=== PATIENT | female | born 1985 | race Caucasian/White ===

== ENCOUNTER 2017-03-07 10:56 | Emergency (ER) | payer BC, OTHER ==
[2017-03-07] MEDS ORDERED: NS 0.9% 1000 ML* 1,000 ML IV ONE (14:53)
[2017-03-07] MEDS ORDERED: Lidocaine 2% VISCOUS* 15 ML UDC PO ONE (14:54)
[2017-03-07] MEDS ORDERED: Al Hydrox/Mg Hydrox/Simet LIQ* 30 ML UDC PO ONE (14:54)
[2017-03-07 15:17] LABS: Hematocrit 40 % (35-47); Hemoglobin 13.5 g/dl (12.0-16.0); Mean Corpuscular HGB Conc 34 g/dl (31-36); Mean Corpuscular Hemoglobin 29 pg (27-31); Mean Corpuscular Volume 87 fL (80-97); Mean Platelet Volume 9 um3 (7.4-10.4); Red Cell Distribution Width 13 % (10.5-15); White Blood Count 8.2 10^3/ul (3.5-10.8)
[2017-03-07 15:29] LABS: ALT 17 U/L (7-52); AST 19 U/L (13-39); Alkaline Phosphatase 55 U/L (34-104); Anion Gap 6 mmol/L (2-11); BUN/Creatinine Ratio 9.9 (8-20); Blood Urea Nitrogen 8 mg/dL (6-24); C Reactive Protein 8.33 mg/L (< 5.00); CO2 Carbon Dioxide 24 mmol/L (22-32); Calcium 8.9 mg/dL (8.6-10.3); Chloride 106 mmol/L (101-111); Creatine Kinase 56 U/L (10-223); EGFR African American 106.8 (>60); Globulin 3.3 g/dL (2-4); Glucose 104 mg/dL (70-100); Lipase 28 U/L (11.0-82.0); Magnesium 2.3 mg/dL (1.9-2.7); Potassium 3.7 mmol/L (3.5-5.0); Sodium 136 mmol/L (133-145); Total Protein 7.3 g/dL (6.4-8.9)
--- NOTE | 2017-03-07 15:43 | RAD ---
Indication: Chest pain. 2 views of the chest including dual energy PA views demonstrate no mediastinal shift. Heart is of normal size and configuration. Lung simmons demonstrate no pleural fluid, pneumonia or pneumothorax. When compared to previous exam of June 18, 2010 no significant change is noted. IMPRESSION: No active cardiopulmonary disease is noted.
[2017-03-07 16:06] LABS: TSH (Thyroid Stimulating Horm) 0.79 mcIU/mL (0.34-5.60)
[2017-03-07 16:37] LABS: Urine Bilirubin Negative (Negative); Urine Glucose Negative (Negative); Urine Nitrite Negative (Negative)
--- NOTE | 2017-03-07 17:00 | ED ---
Tsering Snell Edward, scribed for Zen Cortez MD on 03/07/17 at 1434 . HPI Chest Pain - HPI Summary HPI Summary: 32 y/o jack presents to the ED c/o mild CP intermittently for a couple of months. Last week the CP got worse and became more persistent. The pain starts at the bottom of the sternum/epigastric region and radiates up to her R shoulder , R side neck and back starting 2 days ago. The pain is described as a dull ache that was occasionally tingly initially, but is different now. Now it is described as a pressure with occasional sharp twinges. The pain is at a 3/10 right now and is at a 6-7 at its worst. Last night the pain woke her up throughout the night and was steady in the morning. Pt was seen at her PCP in September 2016 for these symptoms. Associated sx: bloating starting 2 days ago, pain at inside of R leg a couple of nights ago that resolved spontaneously. Denies vomiting. No PMHx GERD. Pt took antacid last night that did not alleviate symptoms. The pain is not aggravated with food. - History of Current Complaint Chief Complaint: EDChestPainROMI Time Seen by Provider: 03/07/17 14:27 Hx Obtained From: Patient Hx Last Menstrual Period: 2 months ago Onset/Duration: Started Weeks Ago, Still Present Timing: Intermittent Initial Severity: Mild Current Severity: Moderate Pain Intensity: 5 Pain Scale Used: 0-10 Numeric Chest Pain Location: Lower Sternal Chest Pain Radiates: Yes Chest Pain Radiates To:: Shoulder, Neck, Other - back Character: Pressure/Squeezing, Sharp/Stabbing Aggravating Factor(s): Nothing Alleviating Factor(s): Nothing Associated Signs and Symptoms: Positive: Other: - bloating. Negative: Vomiting - Allergy/Home Medications Allergies/Adverse Reactions: Allergies Allergy/AdvReac Type Severity Reaction Status Date / Time Amoxicillin Allergy Intermediate Rash Verified 12/18/12 20:11 Butabarbital Allergy See Comment Verified 03/07/17 11:01 PMH/Surg Hx/FS Hx/Imm Hx Previously Healthy: No Endocrine/Hematology History: Denies: Hx Diabetes, Hx Thyroid Disease Cardiovascular History: Denies: Hx Hypertension Respiratory History: Denies: Hx Asthma, Hx Chronic Obstructive Pulmonary Disease (COPD) GI History: Denies: Hx Gastroesophageal Reflux Disease, Hx Ulcer - Surgical History Surgery Procedure, Year, and Place: Bladder Surgery, growth removal, benign Infectious Disease History: No Infectious Disease History: Denies: Hx Hepatitis, Hx Human Immunodeficiency Virus (HIV), Traveled Outside the [place] in Last 30 Days - Family History Known Family History: Positive: Unknown - Social History Alcohol Use: Occasionally Hx Substance Use: No Substance Use Type: Reports: None Hx Tobacco Use: No Smoking Status (MU): Never Smoked Tobacco Review of Systems Constitutional: Negative Eyes: Negative ENT: Negative Positive: Chest Pain Respiratory: Negative Positive: Other - bloating. Negative: Vomiting, Nausea Genitourinary: Negative Musculoskeletal: Negative Skin: Negative Neurological: Negative Psychological: Normal All Other Systems Reviewed And Are Negative: Yes Physical Exam Triage Information Reviewed: Yes Vital Signs On Initial Exam: Initial Vitals Temp Pulse Resp BP Pulse Ox 98.6 F 91 16 138/90 99 03/07/17 11:01 03/07/17 11:01 03/07/17 11:01 03/07/17 11:01 03/07/17 11:01 Vital Signs Reviewed: Yes Appearance: Positive: Well-Appearing, No Pain Distress Skin: Positive: Warm, Skin Color Reflects Adequate Perfusion, Dry Head/Face: Positive: Normal Head/Face Inspection Eyes: Positive: EOMI, SOFIA ENT: Positive: Normal ENT inspection Neck: Positive: Supple, Nontender Respiratory/Lung Sounds: Positive: Clear to Auscultation, Breath Sounds Present Cardiovascular: Positive: RRR Abdomen Description: Positive: Nontender, Soft Bowel Sounds: Positive: Present Musculoskeletal: Positive: Strength/ROM Intact, Pain @ - Mildly tender @ L sternal border Neurological: Positive: Normal, Sensory/Motor Intact, Alert, Oriented to Person Place, Time Psychiatric: Positive: Affect/Mood Appropriate Diagnostics - Vital Signs Vital Signs Temp Pulse Resp BP Pulse Ox 03/07/17 11:01 98.6 F 91 16 138/90 99 - Laboratory Lab Results: Lab Results 03/07/17 03/07/17 03/07/17 Range/Units 15:04 15:04 15:04 WBC 8.2 (3.5-10.8) 10^3/ul RBC 4.60 (4.0-5.4) 10^6/ul Hgb 13.5 (12.0-16.0) g/dl Hct 40 (35-47) % MCV 87 (80-97) fL MCH 29 (27-31) pg MCHC 34 (31-36) g/dl RDW 13 (10.5-15) % Plt Count 291 (150-450) 10^3/ul MPV 9 (7.4-10.4) um3 Neut % (Auto) 54.6 (38-83) % Lymph % (Auto) 36.9 (25-47) % Jackson % (Auto) 5.3 (1-9) % Eos % (Auto) 2.1 (0-6) % Baso % (Auto) 1.1 (0-2) % Absolute Neuts (auto) 4.5 (1.5-7.7) 10^3/ul Absolute Lymphs (auto) 3.0 (1.0-4.8) 10^3/ul Absolute Monos (auto) 0.4 (0-0.8) 10^3/ul Absolute Eos (auto) 0.2 (0-0.6) 10^3/ul Absolute Basos (auto) 0.1 (0-0.2) 10^3/ul Absolute Nucleated RBC 0 10^3/ul Nucleated RBC % 0 INR (Anticoag Therapy) 0.81 (0.77-1.02) APTT 28.6 (26.0-36.3) seconds D-Dimer, Quantitative < 200 (Less Than 230) ng/mL Sodium 136 (133-145) mmol/L Potassium 3.7 (3.5-5.0) mmol/L Chloride 106 (101-111) mmol/L Carbon Dioxide 24 (22-32) mmol/L Anion Gap 6 (2-11) mmol/L BUN 8 (6-24) mg/dL Creatinine 0.81 (0.51-0.95) mg/dL Est GFR ( Amer) 106.8 (>60) Est GFR (Non-Af Amer) 83.0 (>60) BUN/Creatinine Ratio 9.9 (8-20) Glucose 104 H (70-100) mg/dL Lactic Acid (0.5-2.0) mmol/L Calcium 8.9 (8.6-10.3) mg/dL Magnesium 2.3 (1.9-2.7) mg/dL Total Bilirubin 0.70 (0.2-1.0) mg/dL AST 19 (13-39) U/L ALT 17 (7-52) U/L Alkaline Phosphatase 55 (34-104) U/L Total Creatine Kinase 56 (10-223) U/L CK-MB (CK-2) 0.6 (0.6-6.3) ng/mL Troponin I 0.00 (<0.04) ng/mL C-Reactive Protein 8.33 H (< 5.00) mg/L Total Protein 7.3 (6.4-8.9) g/dL Albumin 4.0 (3.2-5.2) g/dL Globulin 3.3 (2-4) g/dL Albumin/Globulin Ratio 1.2 (1-3) Lipase 28 (11.0-82.0) U/L TSH 0.79 (0.34-5.60) mcIU/mL Beta HCG, Quant < 0.60 mIU/mL Urine Color Urine Appearance Urine pH (5-9) Ur Specific [place] (1.010-1.030) Urine Protein (Negative) Urine Ketones (Negative) Urine Blood (Negative) Urine Nitrate (Negative) Urine Bilirubin (Negative) Urine Urobilinogen (Negative) Ur Leukocyte Esterase (Negative) Urine Glucose (Negative) Urine Ascorbic Acid (Negative) 03/07/17 03/07/17 Range/Units 15:04 16:18 WBC (3.5-10.8) 10^3/ul RBC (4.0-5.4) 10^6/ul Hgb (12.0-16.0) g/dl Hct (35-47) % MCV (80-97) fL MCH (27-31) pg MCHC (31-36) g/dl RDW (10.5-15) % Plt Count (150-450) 10^3/ul MPV (7.4-10.4) um3 Neut % (Auto) (38-83) % Lymph % (Auto) (25-47) % Jackson % (Auto) (1-9) % Eos % (Auto) (0-6) % Baso % (Auto) (0-2) % Absolute Neuts (auto) (1.5-7.7) 10^3/ul Absolute Lymphs (auto) (1.0-4.8) 10^3/ul Absolute Monos (auto) (0-0.8) 10^3/ul Absolute Eos (auto) (0-0.6) 10^3/ul Absolute Basos (auto) (0-0.2) 10^3/ul Absolute Nucleated RBC 10^3/ul Nucleated RBC % INR (Anticoag Therapy) (0.77-1.02) APTT (26.0-36.3) seconds D-Dimer, Quantitative (Less Than 230) ng/mL Sodium (133-145) mmol/L Potassium (3.5-5.0) mmol/L Chloride (101-111) mmol/L Carbon Dioxide (22-32) mmol/L Anion Gap (2-11) mmol/L BUN (6-24) mg/dL Creatinine (0.51-0.95) mg/dL Est GFR ( Amer) (>60) Est GFR (Non-Af Amer) (>60) BUN/Creatinine Ratio (8-20) Glucose (70-100) mg/dL Lactic Acid 0.9 (0.5-2.0) mmol/L Calcium (8.6-10.3) mg/dL Magnesium (1.9-2.7) mg/dL Total Bilirubin (0.2-1.0) mg/dL AST (13-39) U/L ALT (7-52) U/L Alkaline Phosphatase (34-104) U/L Total Creatine Kinase (10-223) U/L CK-MB (CK-2) (0.6-6.3) ng/mL Troponin I (<0.04) ng/mL C-Reactive Protein (< 5.00) mg/L Total Protein (6.4-8.9) g/dL Albumin (3.2-5.2) g/dL Globulin (2-4) g/dL Albumin/Globulin Ratio (1-3) Lipase (11.0-82.0) U/L TSH (0.34-5.60) mcIU/mL Beta HCG, Quant mIU/mL Urine Color Yellow Urine Appearance Clear Urine pH 7.0 (5-9) Ur Specific [place] 1.013 (1.010-1.030) Urine Protein Negative (Negative) Urine Ketones Negative (Negative) Urine Blood Negative (Negative) Urine Nitrate Negative (Negative) Urine Bilirubin Negative (Negative) Urine Urobilinogen Negative (Negative) Ur Leukocyte Esterase Negative (Negative) Urine Glucose Negative (Negative) Urine Ascorbic Acid * H (Negative) Result Diagrams: 03/07/17 15:04 03/07/17 15:04 Lab Statement: Any lab studies that have been ordered have been reviewed, and results considered in the medical decision making process. - Radiology CXR Xray Interpretation: No Acute Changes - No active cardiopulmonary disease noted Radiology Interpretation Completed By: Radiologist - ED PHYSICIAN REVIEWS AND AGREES - Additional Comments Diagnostic Additional Comments: EKG - 15:31 - NSR @ [address], No ectopy. Chest Pain Course/Dx - Course Course Of Treatment: DISCUSSED RESULTS WITH PATIENT/. NO APPARENT IMPROVEMENT WITH GI COCKTAIL. NL EKG. NEG TROP AND DDIMER. WILL PLAN ON IBUPROFEN AND F/U PMD; RETURN IF WORSE. - Diagnoses Provider Diagnoses: Chest pain Discharge - Discharge Plan Condition: Stable Disposition: HOME Patient Education Materials: Chest Pain (ED) Referrals: Loretta Hutchinson MD [Primary Care Provider] - Additional Instructions: FOLLOW UP WITH YOUR DOCTOR. TAKE IBUPROFEN 600MG EVERY 6 HOURS NEEDED IF HELPFUL. RETURN TO THE EMERGENCY DEPARTMENT FOR ANY WORSENING OF YOUR CONDITION; PAIN, SHORTNESS OF BREATH, YOU FEEL ILL, FEVER OR QUESTIONS OR CONCERNS. The documentation as recorded by the Tsering diez Edward accurately reflects the service I personally performed and the decisions made by me, Zen Cortez MD.
[2017-03-07 17:32] VITALS: BP 116/82
== END 2017-03-07 17:32 | disposition home or self-care (01) ==
LOC: ED 10:56
DX: R07.89 Other chest pain (principal); R14.0 Abdominal distension (gaseous); Z32.02 Encounter for pregnancy test, result negative; Z88.1 Allergy status to other antibiotic agents
CPT/HCPCS: 36415; 71020; 80053; 81003; 82550; 82553; 83605; 83690; 83735; 84443; 84484; 84702; 85025; 85379; 85610; 85730; 86140; 93005; 99282; A9270-GY

== ENCOUNTER 2017-05-22 18:33 | Emergency (ER) | payer BC ==
[2017-05-22] MEDS ORDERED: Albuterol HFA INHALER* 8 gm MDI INH ONE (22:56)
[2017-05-22] MEDS ORDERED: GuaiFENesin DM* 5 ML UDC PO ONE (22:56)
[2017-05-22] MEDS ORDERED: Benzonatate CAP* 100 MG PO ONE (22:56)
[2017-05-22] MEDS ORDERED: Ibuprofen TAB* 600 MG PO ONE (23:18)
[2017-05-22 23:57] VITALS: BP 113/82
--- NOTE | 2017-05-23 01:18 | ED ---
Respiratory - HPI Summary HPI Summary: Patient is an otherwise healthy 32-year-old female who presents to the ED with chief complaint of cough and chest discomfort with cough. She states a company had came to bleach out their well, and immediately following her and her began to develop inhalation symptoms. She states the odor of bleach was extremely strong and upon inhalation she felt a burning in her lungs. This occurred on Monday (4 days ago) and felt improved over the weekend. She now states she feels feverish, with cough but denies any shortness of breath. Her was recently diagnosed with bronchitis. She denies any flu contacts. She denies any rhinorrhea. She has been taking ibuprofen and Tylenol at home with slight improvement. She denies any throat or nasal pain. - History of Current Complaint Chief Complaint: EDThroatPain Stated Complaint: DIFF BREATHING Time Seen by Provider: 05/22/17 21:18 Hx Obtained From: Patient Onset/Duration: Sudden Onset Timing: Constant Initial Severity: Mild Current Severity: Mild Pain Intensity: 5 Character: Cough (Nonproductive) Sputum Amount: None Sputum Color: Clear Aggravating Factor(s): URI Alleviating Factor(s): Nothing Associated Signs and Symptoms: Negative - Risk Factors Status Asthmaticus Risk Factors: Negative Pulmonary Embolism Risk Factors: Negative Cardiac Risk Factors: Negative Pseudomonas Risk Factors: Negative Tuberculosis Risk Factors: Negative - Allergy/Home Medications Allergies/Adverse Reactions: Allergies Allergy/AdvReac Type Severity Reaction Status Date / Time amoxicillin Allergy Rash Verified 05/22/17 18:44 butabarbital Allergy See Comment Verified 05/22/17 18:44 PMH/Surg Hx/FS Hx/Imm Hx Previously Healthy: Yes Endocrine/Hematology History: Denies: Hx Diabetes, Hx Thyroid Disease Cardiovascular History: Denies: Hx Hypertension Respiratory History: Denies: Hx Asthma, Hx Chronic Obstructive Pulmonary Disease (COPD) GI History: Denies: Hx Gastroesophageal Reflux Disease, Hx Ulcer - Surgical History Surgery Procedure, Year, and Place: Bladder Surgery, growth removal, benign - Immunization History Hx Pertussis Vaccination: No Immunizations Up to Date: Unable to Obtain/Confirm Infectious Disease History: No Infectious Disease History: Denies: Hx Hepatitis, Hx Human Immunodeficiency Virus (HIV), Traveled Outside the [place] in Last 30 Days - Family History Known Family History: Positive: Unknown - Social History Occupation: Employed Full-time Lives: With Family Alcohol Use: Rare Hx Substance Use: No Substance Use Type: Reports: None Hx Tobacco Use: No Smoking Status (MU): Never Smoked Tobacco Review of Systems Constitutional: Negative Negative: Fever, Chills, Fatigue, Skin Diaphoresis Eyes: Negative Positive: Chest Pain - with cough Positive: Shortness Of Breath - with cough, Cough Gastrointestinal: Negative Negative: Abdominal Pain, Vomiting, Diarrhea, Nausea Positive: no symptoms reported, see HPI Musculoskeletal: Negative Skin: Negative Psychological: Normal All Other Systems Reviewed And Are Negative: Yes Physical Exam Triage Information Reviewed: Yes Vital Signs On Initial Exam: Initial Vitals Temp Pulse Resp BP Pulse Ox 98.2 F 104 16 153/85 99 05/22/17 18:40 05/22/17 18:40 05/22/17 18:40 05/22/17 18:40 05/22/17 18:40 Vital Signs Reviewed: Yes Appearance: Positive: Well-Appearing, Well-Nourished Skin: Positive: Warm, Skin Color Reflects Adequate Perfusion Head/Face: Positive: Normal Head/Face Inspection Eyes: Positive: EOMI, SOFIA, Conjunctiva Clear Neck: Positive: Supple, No Lymphadenopathy Respiratory/Lung Sounds: Positive: Clear to Auscultation, Breath Sounds Present Cardiovascular: Positive: Normal, RRR, Pulses are Symmetrical in both Upper and Lower Extremities Musculoskeletal: Positive: Normal, Strength/ROM Intact Neurological: Positive: Speech Normal Psychiatric: Positive: Normal, Affect/Mood Appropriate AVPU Assessment: Alert Diagnostics - Vital Signs Vital Signs Temp Pulse Resp BP Pulse Ox 05/22/17 23:55 99.8 F 68 16 113/82 100 05/22/17 23:08 100.6 F 05/22/17 23:00 99 98 05/22/17 22:33 98 05/22/17 22:30 118 105/58 98 05/22/17 22:00 97 121/82 99 05/22/17 21:30 101 121/80 99 05/22/17 21:00 104 137/93 100 05/22/17 20:54 123 99 05/22/17 20:53 143/71 05/22/17 18:40 98.2 F 104 16 153/85 99 - Laboratory Lab Results: Lab Results 05/22/17 Range/Units 23:00 Influenza A (Rapid) Negative (Negative) Influenza B (Rapid) Negative (Negative) Lab Statement: Any lab studies that have been ordered have been reviewed, and results considered in the medical decision making process. Disposition - Course Course Of Treatment: During the course of treatment, the patient's evaluated for possible inhalation injury. Poison control called upon patient's arrival and state any symptoms or manifestations of a pulmonary burn from an inhalation of noxious gas or chemical would have been present within the first 24 hours and caused hypoxia. Due to her improvement over the last few days, this is likely not a manifestation of a inhalation injury. Chest x-ray obtained at urgent care reviewed and shows no acute findings. EKG on arrival shows normal sinus rhythm. Pulse ox remains on during patient's stay and remains at 100% on room air. She denies any shortness of breath. She continues to have spastic coughs intermittently. She has an elevated temp at 100.1 and I have given her Tylenol. She is given a bronchodilator, Robitussin and Tessalon. Tessalon is prescribed to her. I've discussed with the patient that this could possibly be a tracheobronchial injury due to the inhalation of toxic noxious gases such as the chlorine bleach she had in her house. She does not have any soot- containing airway secretions, increased work of breathing, hypoventilation, and x-ray and EKG were both normal. However, the inhalation could have caused bronchoconstriction inducing an inflammatory response. She likely has this bronchitis and bronchospasm due to the allergen of the inhalation of the bleach. - Differential Dx - Cardiopulmonary Differential Diagnoses - Cardiopulmonary: Other - Bronchitis, bronchospasm, allergen induced bronchospasm, inhalation injury - Diagnoses Provider Diagnoses: Bronchospasm Discharge - Discharge Plan Condition: Stable Disposition: HOME Prescriptions: Benzonatate CAP* [Tessalon CAP*] 100 mg PO TID #21 cap Patient Education Materials: Bronchospasm (ED) Forms: *Work Release Referrals: Loretta Hutchinson MD [Primary Care Provider] - Additional Instructions: As discussed, I believe you have a bronchospasm and possibly bronchitis due to an allergen inhalant reaction from the bleach inhalation As discussed, I do not believe you have inhalation domínguez Please take the Tessalon and [id number]-lotfinn Robitussin as prescribed Ibuprofen and Tylenol intermittently for fevers and aches If you develop any worsening symptoms, return to the ED immediately
== END 2017-05-22 23:55 | disposition home or self-care (01) ==
LOC: ED 18:33
DX: J98.01 Acute bronchospasm (principal); R07.9 Chest pain, unspecified; R05 Cough; R06.02 Shortness of breath
CPT/HCPCS: 87502; 93005; 99283; A9270-GY

== ENCOUNTER 2017-07-27 08:08 | Day surgery (SDC) | payer BC ==
[~2017-07-27 08:08] MED LIST: Buffered Lidocaine 0.9% SYRIN* 5 ML/SYR SYRINGE INTRADERM ONE; Ketorolac INJ* 30 MG/ML 1 ML VIAL ONE; Lidocaine 2% PF * 5 ML VIAL ONE; Midazolam* 1 MG/ML 2 ML VIAL (2 MG) ONE; Ondansetron INJ* 2 MG/ML VIAL ONE; Propofol* 10 MG/ML 20 ML BTL IV PUSH ONE; fentaNYL* 50 MCG/ML 2 ML VIAL (100 MCG VIAL) ONE
[2017-07-27] MEDS ORDERED: Clindamycin 900 MG IVPREMIX(* 900 MG/50 ML SDV IV ONE (08:44)
[2017-07-27] MEDS ORDERED: Bupivacaine 0.25% SDV* 30 ML ONE (09:43)
[2017-07-27] MEDS ORDERED: Propofol* 10 MG/ML 20 ML BTL IV PUSH ONE (10:29)
[2017-07-27] MEDS ORDERED: diPHENhydraMINE IV* 50 MG/ML 1 ml VIAL (BENADRYL) IV PRN (10:49)
[2017-07-27] MEDS ORDERED: fentaNYL* 50 MCG/ML 2 ML VIAL (100 MCG VIAL) IV PRN (10:49)
[2017-07-27] MEDS ORDERED: Ondansetron INJ* 2 MG/ML VIAL IV PRN (10:49)
[2017-07-27] MEDS ORDERED: HYDROmorphone INJ* 1 MG/ML CARPUJECT SYRINGE IV PRN (10:49)
[2017-07-27] MEDS ORDERED: Acetaminophen TAB* 325 MG PO PRN (10:49)
[2017-07-27] MEDS ORDERED: oxyCODONE/Acetamin 5/325 MG* TAB PO PRN (10:49)
[2017-07-27] MEDS ORDERED: Naloxone* 0.4 MG/ML 1 ML VIAL IV PRN (10:49)
[2017-07-27 10:56] VITALS: BP 107/66
--- NOTE | 2017-07-27 22:48 | OP ---
DATE OF OPERATION: 07/27/17 - [facility] DATE OF : 89 SURGEON: Nuno Walker MD HAND FORMER: FELICIA Laguna ANESTHESIOLOGIST: Dr. Cristina ANESTHESIA: Local MAC. PRE-OP DIAGNOSIS: Left thumb radial sesamoid pain. POST-OP DIAGNOSIS: Left thumb radial sesamoid pain. OPERATIVE PROCEDURE: Excision of left thumb metacarpophalangeal joint, radial sesamoid bone. INDICATIONS: Megha had an injury a while back. It has been consistently painful right in that spot. She is point tender right on the radial sesamoid. MRI showed degenerative changes in the bone. I talked about risks and benefits. She wants to proceed. ESTIMATED BLOOD LOSS: 1 mL. COMPLICATIONS: None. FINDINGS: Flattened and degenerative radial sesamoid. DESCRIPTION OF PROCEDURE: Megha was seen in the preoperative holding area. The correct side, site, and procedure were identified. We came back to the operating room and the arm was prepped and draped in the usual fashion. After I performed, a digital block, the arm was prepped and draped in the usual fashion. A time-out was performed. I exsanguinated the arm with Esmarch. Tourniquet was inflated to 250 mmHg. I made a v-shaped incision over the radial sesamoid. Dissection was carried down. The radial digital nerve was identified and retracted ulnarly. I then opened up the soft tissue longitudinally off the sesamoid bone. It was released circumferentially with a [place] blade. The sesamoid was completely flattened and degenerative. It was excised and handed off as a specimen. The capsule layer was closed with couple of buried 4-0 Ethibond [id number] sutures. The wound was closed by 4x4s. The wounds were dressed with soft dressing and she was woken up and taken to recovery room in stable condition. [id number]/[facility] #: [id number] MTDD
== END 2017-07-27 11:13 | disposition home or self-care (01) ==
LOC: OREAST 08:08
PROVIDERS: ATTEND Orthopaedic Surgery Hand Surgery
DX: M25.542 Pain in joints of left hand (principal); R22.32 Localized swelling, mass and lump, left upper limb; F41.0 Panic disorder [episodic paroxysmal anxiety]; Z68.27 Body mass index [BMI] 27.0-27.9, adult; K58.9 Irritable bowel syndrome, unspecified
CPT/HCPCS: 81025; 88304; 88311; J1885; J2250; J2405; J2704; J3010

== ENCOUNTER 2018-06-13 05:47 | Day surgery (SDC) | payer BC ==
[~2018-06-13 05:47] MED LIST changes: -Buffered Lidocaine 0.9% SYRIN* 5 ML/SYR SYRINGE INTRADERM ONE; +Buffered Lidocaine 1% SYRIN* 1 ML/SYRINGE INTRADERM ONE; -Ketorolac INJ* 30 MG/ML 1 ML VIAL ONE; -Lidocaine 2% PF * 5 ML VIAL ONE; -Midazolam* 1 MG/ML 2 ML VIAL (2 MG) ONE; -Ondansetron INJ* 2 MG/ML VIAL ONE; -Propofol* 10 MG/ML 20 ML BTL IV PUSH ONE; -fentaNYL* 50 MCG/ML 2 ML VIAL (100 MCG VIAL) ONE
[2018-06-13] MEDS ORDERED: Famotidine IV* 10 MG/ML 2 ML (20 mg) IV ONE (06:00)
[2018-06-13] MEDS ORDERED: Lactated Ringers 1000 ML Bag* 1,000 ML IV SCH (06:00)
[2018-06-13] MEDS ORDERED: Dexamethasone IV* 4 MG/ML 1 ML (4 MG) IV SLOW PU ONE (06:00)
[2018-06-13] MEDS ORDERED: Famotidine IV* 10 MG/ML 2 ML (20 mg) ONE (06:10)
[2018-06-13] MEDS ORDERED: Dexamethasone IV* 4 MG/ML 1 ML (4 MG) ONE (06:10)
[2018-06-13] MEDS ORDERED: fentaNYL* 50 MCG/ML 2 ML VIAL (100 MCG VIAL) ONE ×3 (07:23→09:03)
[2018-06-13] MEDS ORDERED: Midazolam* 1 MG/ML 2 ML VIAL (2 MG) ONE (07:24)
[2018-06-13] MEDS ORDERED: Acetaminophen TAB* 325 MG PO PRN (08:04)
[2018-06-13] MEDS ORDERED: Scopolamine 1.5 mg* PATCH TRANSDERM PRN (08:04)
[2018-06-13] MEDS ORDERED: Ketorolac INJ* 30 MG/ML 1 ML VIAL IV PRN (08:04)
[2018-06-13] MEDS ORDERED: PROCHLORPERAZINE INJ 5 MG/ML 2 ML VIAL IV PRN (08:04)
[2018-06-13] MEDS ORDERED: Naloxone* 0.4 MG/ML 1 ML VIAL IV PRN (08:04)
[2018-06-13] MEDS ORDERED: DiMENhydriNATE IV* 50 MG/ML VIAL IV PUSH PRN (08:04)
[2018-06-13] MEDS ORDERED: Ketorolac INJ* 30 MG/ML 1 ML VIAL ONE (08:39)
[2018-06-13] MEDS ORDERED: oxyCODONE/Acetamin 5/325 MG* TAB ONE ×2 (08:59→10:05)
[2018-06-13] MEDS: oxyCODONE/Acetamin 5/325 MG* TAB PO PRN ×2 (09:00→10:06)
[2018-06-13] MEDS: fentaNYL* 50 MCG/ML 2 ML VIAL (100 MCG VIAL) IV PRN ×3 (09:04→09:14)
[2018-06-13 09:17] VITALS: BP 114/77
--- NOTE | 2018-06-15 22:00 | OP ---
DATE OF OPERATION: 06/13/18 - [facility] DATE OF : 89 SURGEON: Ramon Dong MD ANESTHESIA: General anesthetic with endotracheal intubation. PRE-OP DIAGNOSIS: Metrorrhagia with a pelvic ultrasound consistent with a possible endometrial polyp. POST-OP DIAGNOSIS: Normal endometrium with no lesions, pending pathology. OPERATIVE PROCEDURE: Hysteroscopy, dilation and curettage. ESTIMATED BLOOD LOSS: Less than 5 cc. SPECIMEN SENT TO PATHOLOGY: Endometrial curettings. IV FLUIDS: She received 1 L of IV crystalloid fluid. URINE OUTPUT: Clear, about 100 cc. FINDINGS: Exam under anesthesia revealed normal external genitalia, normal vaginal mucosa and cervix. Hysteroscopic findings revealed a normal proliferative endometrium with no apparent lesions. The uterus also sounded to 9 cm, was in an anteverted position. DESCRIPTION OF PROCEDURE: The patient was taken to the operating room where she was identified. She was placed on the operating table, where a general anesthetic with endotracheal intubation was obtained without difficulty. She was placed in the dorsal lithotomy position, prepped and draped in a normal sterile fashion. Attention was then brought into the patient's perineum where the bladder was catheterized with a straight catheter and emptied off clear urine. A weighted speculum was inserted into the patient's vagina, the cervix was identified, grasped with a single-tooth tenaculum. It was then sounded to 9 cm in an anteverted position. The cervix was then dilated with the use of Hegar dilators in a successive fashion. After dilation of the cervix, a hysteroscope was introduced to the cervix. On survey, the patient's intrauterine cavity revealed findings as noted above. After this diagnostic hysteroscope, the scope was removed from the patient's uterus, a sharp curettage was performed. The endometrial curettings were sent to pathology. A second look with a hysteroscope revealed complete denudation of the endometrial cavity. At this point, all the instruments were removed from the patient's vagina. Sponge, lap, needle counts were correct x2. She was then transferred to the recovery room area in stable condition. [id number]/[facility] #: [id number] MTDD
== END 2018-06-13 10:09 | disposition home or self-care (01) ==
LOC: OR 05:47
PROVIDERS: ATTEND Obstetrics & Gynecology
DX: N92.1 Excessive and frequent menstruation with irregular cycle (principal); K21.9 Gastro-esophageal reflux disease without esophagitis; N32.81 Overactive bladder
CPT/HCPCS: 88305; 88342; A9270-GY; J1100; J1885; J2250; J3010